=== PATIENT | female | born 1940 | race Caucasian/White ===

== ENCOUNTER 2018-03-09 11:49 | Inpatient (IN) | payer MEDICARE, OTHER ==
[2018-03-09] MEDS ORDERED: NS 0.9% 1000 ML*IV.FLUID IV ONE (14:54)
[2018-03-09] MEDS ORDERED: Azithromycin IV(*) 500 MG in NS 0.9% 250 ML* 250 ML IVPB ONE (14:54)
[2018-03-09] MEDS ORDERED: cefTRIAXone(*) 1 GM in NS 0.9% 50 ML* 50 ML IVPB ONE (14:54)
[2018-03-09] MEDS ORDERED: Albuterol/Ipratropium NEB.SOL* Albuterol 2.5 MG/Ipratropium 0.5 MG 3 ML INH ONE ×2 (15:38→17:06)
[2018-03-09 15:54] LABS: ABS Basophils 0 10^3/ul (0-0.2); ABS Eosinophils 0 10^3/ul (0-0.6); ABS Lymphocytes 0.8 10^3/ul (1.0-4.8); ABS Monocytes 0.5 10^3/ul (0-0.8); ABS Neutrophils 10.3 10^3/ul (1.5-7.7); ABS Nucleated RBC 0 10^3/ul; Eosinophil % 0.1 %; Hematocrit 42 % (35-47); Hemoglobin 13.9 g/dl (12.0-16.0); Lymphocyte % 7.2 %; Mean Corpuscular HGB Conc 33 g/dl (31-36); Mean Corpuscular Hemoglobin 30 pg (27-31); Mean Corpuscular Volume 90 fL (80-97); Mean Platelet Volume 8.6 fL (7.4-10.4); Nucleated Red Blood Cells % 0; Platelet Count 220 10^3/ul (150-450); Red Blood Count 4.66 10^6/ul (4.00-5.40); Red Cell Distribution Width 14 % (10.5-15); White Blood Count 11.6 10^3/ul (3.5-10.8)
--- NOTE | 2018-03-09 15:57 | ED ---
Respiratory - HPI Summary HPI Summary: Patient is a 77 -year-old male who presents emergency Department with complaints of shortness of breath, wheezing, cough and fever. Patient states she developed a cough about 2 weeks ago and has been coughing up a lot of mucus. She states in the last few days she is wheezy, short of breath and developed fever. Symptoms are moderate in severity. Activities make symptoms worse. Activity makes symptoms better. One episode of vomiting. Denies chest pain, abdominal pain, diarrhea, urinary symptoms. Pt. notes she is visiting the area and recently flew from [place] and then drove to [place] from [place]. Symptoms are moderate in severity. - History of Current Complaint Chief Complaint: EDGeneral Stated Complaint: FEVER/VOMITING Time Seen by Provider: 03/09/18 14:38 Hx Obtained From: Patient Pain Intensity: 0 - Allergy/Home Medications Allergies/Adverse Reactions: Allergies Allergy/AdvReac Type Severity Reaction Status Date / Time No Known Allergies Allergy Verified 03/09/18 11:57 PMH/Surg Hx/FS Hx/Imm Hx Previously Healthy: Yes Infectious Disease History: No Infectious Disease History: Denies: Traveled Outside the in Last 30 Days - Family History Known Family History: Positive: Non-Contributory - Social History Occupation: Retired Lives: With Family Alcohol Use: Occasionally Substance Use Type: Reports: Prescribed Substance Use Comment - Amount & Last Used: norco Smoking Status (MU): Never Smoked Tobacco Review of Systems Positive: Fever, Chills Eyes: Negative ENT: Negative Cardiovascular: Negative Negative: Palpitations, Chest Pain Positive: Shortness Of Breath, Cough Positive: Vomiting Genitourinary: Negative Skin: Negative Neurological: Negative All Other Systems Reviewed And Are Negative: Yes Physical Exam Triage Information Reviewed: Yes Vital Signs On Initial Exam: Initial Vitals Temp Pulse Resp BP Pulse Ox 97.7 F 115 20 113/70 91 03/09/18 11:52 03/09/18 11:52 03/09/18 11:52 03/09/18 11:52 03/09/18 11:52 Vital Signs Reviewed: Yes Appearance: Positive: Well-Appearing - Pt. sitting up in bed in NAD. Family member present. Skin: Positive: Warm, Dry Head/Face: Positive: Normal Head/Face Inspection Eyes: Positive: Normal, EOMI Neck: Positive: Supple, Nontender. Negative: Nuchal Rigidity Respiratory/Lung Sounds: Positive: Other - crackles on the left and mild wheezing on the right lower base. Decreased breath sounds throughout Cardiovascular: Positive: Normal, RRR Abdomen Description: Positive: Nontender, Soft Musculoskeletal: Positive: Normal, Strength/ROM Intact Neurological: Positive: Normal, CN Intact II-III Psychiatric: Positive: Affect/Mood Appropriate - Shyla Coma Scale Best Eye Response: 4 - Spontaneous Best Motor Response: 6 - Obeys Commands Best Verbal Response: 5 - Oriented Coma Scale Total: 15 Diagnostics - Vital Signs Vital Signs Temp Pulse Resp BP Pulse Ox 03/09/18 14:41 100.2 F 112 22 127/90 93 03/09/18 14:40 112 92 03/09/18 11:52 97.7 F 115 20 113/70 91 - Laboratory Result Diagrams: 03/09/18 15:37 03/09/18 15:37 Lab Statement: Any lab studies that have been ordered have been reviewed, and results considered in the medical decision making process. Disposition - Course Course Of Treatment: Is Pt. presenting for cough, fever and SOB. Temp 101.2F, HR 112, resp 22, O2 saturation initially 91% on RA which is low. Pt. placed on NC and O2 improved to high 90's. Concern for pneumonia. VS are concerning for sepsis and sepsis protocol ordered. Will give duoneb, rocephin and zithromax. CBC shows WBC of 11.6. CRP elevated. Labs otherwise unremarkable. Chest xray negative for acute findings, per radiology. 1538: Pt. re-examined. She is moving air better and is having more wheezing. Pt. states she is feeling better and would like to be dc at this time. Pt. agreed to do another breathing treatment. 1735: Nurse took pt. off of O2 and brought her to the bedside. Pt. immediately desated to low 70's and had peripheral cyanosis. Pt. put on 5L nonrebreathing and O2 improved. Given recent travels will obtain CTA to evalute for PE. I spoke with hospitalist, Dr. Branham, and she has accepted pt. to her service pending CTA at this time. O2 sats in mid 90's on re-exam. - Differential Dx - Cardiopulmonary Differential Diagnoses - Cardiopulmonary: Acute Coronary, Acute Dyspnea - Diagnoses Provider Diagnoses: Hypoxia Discharge - Sign-Out/Discharge Documenting (check all that apply): Patient Departure - Discharge Plan Condition: Stable Disposition: ADMITTED TO [facility] Referrals: No Primary Care Phys,NOPCP [Primary Care Provider] - - Billing Disposition and Condition Condition: STABLE Disposition: Admitted to [facility]
[2018-03-09 16:17] LABS: Albumin/Globulin Ratio 1.5 (1-3); BUN/Creatinine Ratio 25.4 (8-20); C Reactive Protein 81.37 mg/L (<8.01); EGFR Non-African American 79.6 (>60); Globulin 2.6 g/dL (2-4); Potassium 3.4 mmol/L (3.5-5.0); Total Bilirubin 0.5 mg/dL (0.2-1.0); Total Protein 6.6 g/dL (6.4-8.9)
[2018-03-09 17:48] LABS: Urine Appearance Cloudy; Urine Bacteria Absent (Absent); Urine Bilirubin Negative (Negative); Urine Blood Negative (Negative); Urine Color Yellow; Urine Glucose Negative (Negative); Urine Ketones Trace (Negative); Urine Nitrite Negative (Negative); Urine Protein Negative (Negative); Urine Red Blood Cell Absent (Absent); Urine Urobilinogen Negative (Negative); Urine White Blood Cell 1+(6-10/hpf) (Absent)
[2018-03-09] MEDS ORDERED: Acetaminophen TAB* 325 MG PO ONE (17:48)
[2018-03-09] MEDS ORDERED: Iohexol 350* (CONTRAST) 500 ML MDV IV ONE (18:26)
[2018-03-09] MEDS ORDERED: Piperacillin/Tazobac ADVAN(*) 3.375 GM in NS 0.9% 100 ML* 100 ML IVPB ONE (19:52)
[2018-03-09] MEDS ORDERED: tiZANidine TAB* 2 MG PO PRN (19:57)
[2018-03-09] MEDS ORDERED: Fluticasone NASAL SPRAY 50MCG* 16 gm SPRAY BTL BOTH NARES PRN (19:58)
[2018-03-09] MEDS ORDERED: Ondansetron INJ* 2 MG/ML VIAL IV PRN (19:59)
[2018-03-09] MEDS ORDERED: Acetaminophen TAB* 325 MG PO PRN (19:59)
[2018-03-09] MEDS ORDERED: Zosyn per Pharmacy* NOTE FOLLOW UP SCH (20:00)
[2018-03-09] MEDS ORDERED: NS 0.9% 1000 ML* 1,000 ML IV SCH (20:00)
--- NOTE | 2018-03-09 22:10 | HP ---
HISTORY AND PHYSICAL: DATE OF ADMISSION: 03/09/18 PRIMARY CARE PROVIDER: None locally. CHIEF COMPLAINT: Shortness of breath, fever, and vomiting. HISTORY OF PRESENT ILLNESS: Anthony Uriostegui is a 77-year-old female who just arrived to [place] from [place], [place] 6 days ago. She flew in to visit her grandson. She stated that after her travel, she fe lt somewhat tired and would get occasionally dizzy when standing up, but otherwise she has had no oth er issues apart from her chronic dyspnea with exertion that had been ongoing ever since she had pulmo nary emboli several years ago. She stated that yesterday she ate chili and she started vomiting mult iple times. She developed cough and shortness of breath subsequently, and today in the morning, she had a fever of 103 degrees. When she presented to the hospital, her fever was up to 103.2 degrees. T he patient was noted to have oxygen saturation of 91% on room air. She is going to be admitted with a diagnosis of likely aspiration pneumonia. PAST MEDICAL HISTORY: 1. 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 Since then, the patient has had problems with exertional dyspnea. 2. History of pulmonary nodules that had been stable for several years. 3. 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 4. History of lower back surgery. 5. Hypothyroidism. 6. Hypertension. MEDICATIONS: Include: 1. Flonase nasal spray, 1 spray both nostrils daily p.r.n. 2. Diovan 160/25 one tablet daily. 3. Zanaflex 2 mg every 8 hours p.r.n. 4. Ambien 10 mg at bedtime. 5. Synthroid 75 mcg daily. 6. [place] 10/325 mg up to 2 tablets a day. ALLERGIES: No known drug allergies. FAMILY HISTORY: Positive for mother with breast cancer in 1 breast and another primary breast cancer in the remaining breast 30 years later as well as colon cancer. The patient's mother lived up to be 93. Father with history of heart disease and dementia. SOCIAL HISTORY: The patient denies tobacco, alcohol, or drug use. She lives is [place] and she is here visiting her family. She named her daughter who is here with her, Marcia Rojas, as her surroga te. Marcia's phone number is [phone]. REVIEW OF SYSTEMS: Please see history of present illness. Positive for chronic dyspnea on exertion for several years since her pulmonary embolism. Positive bilateral leg edema which is chronic. The patient denies any abdominal pain. She has had f gideon, nausea, and vomiting for the past 24 hours and the fevers were subsequent to the nausea, vomit ing. She started coughing after vomiting several times. All the remaining 12 systems were reviewed with the patient and were otherwise negative. PHYSICAL EXAMINATION GENERAL: The patient is a very pleasant 77-year-old female who is in no acute distress. Alert, awak e, and oriented x3. VITAL SIGNS: Blood pressure of 127/90, heart rate of 112 and regular, respiratory rate 22, oxygen sa turation 91% on room air, temperature currently of 100.2. HEENT: Head: Atraumatic, normocephalic. Eyes: Pupils are equal, reactive to light and accommodati on. Oropharynx clear. Mucosa dry. NECK: Supple. No JVD. No bruits bilaterally. RESPIRATORY: Scattered crackles bilateral lower and mid lungs. CARDIOVASCULAR: Regular rhythm, tachycardia. No murmur. ABDOMEN: Soft, nontender. Bowel sounds are present in all 4 quadrants. EXTREMITIES: There is +1 nonpitting pedal edema. Pulses are +2 bilaterally. There is no clubbing, c yanosis. NEURO EVALUATION: Speech is clear. Cranial nerves II through XII are grossly intact. Motor strengt h is 5/5 bilaterally. SKIN: On evaluation of skin, no ecchymotic areas or rashes noted. PSYCHIATRIC EVALUATION: Oriented x3 with no evidence of anxiety or depression. LABORATORY DATA/DIAGNOSTIC STUDIES: Performed during the ER stay included: The patient's EKG showed sinus tachycardia with a heart rate of 127 beats per minute, with no signifi cant ST changes. CT angiogram of the chest obtained on 03/09/18, impression: "There are nodular opacities noted in th e right middle lobe and lingular segment of the left upper lobe measuring up to 2 cm, findings may re present infectious or inflammatory process. Recommend followup imaging to document resolution. Ther e are scattered multifocal ground-glass opacities noted in the bilateral lung barnett concerning for i nfectious/inflammatory process. There is adequate opacification of the pulmonary vasculature. There is no evidence of PE." White blood cell count was 11.6, hemoglobin of 13.9, hematocrit of 42, and platelets of 220. Sodium was 137, potassium 3.4, chloride 106, carbon dioxide 26, BUN 18, creatinine 0.7. Liver functi on tests unremarkable. C-reactive protein of 81.3. Troponin of 0.01. Lactic acid of 1.1. Urinalysis: +2 esterase, +1 wbc's, absent bacteria, no nitrites. Influenza testing was negative. ASSESSMENT AND PLAN: 1. The patient is septic due to pneumonia, likely aspiration subsequent to vomiting. The patient is going to be admitted on inpatient basis. She was already treated with intravenous boluses. Blood c ultures were obtained. She received azithromycin and ceftriaxone in the emergency department. From now on, she is going to be treated with Zosyn. 2. In regards to the patient's history of hypertension. The patient's blood pressure had been low n ormal and the patient has history of intermittent dizziness since her arrival to [place]. At this poi nt, the patient's hypertensive medications are going to be held. 3. For the patient's hypothyroidism, the patient's Synthroid is going to be continued. 4. The patient's code status is full and her surrogate is her daughter, Marcia. 5. For DVT prophylaxis, the patient is going to be placed on heparin subcutaneously. TIME SPENT: Approximately 65 minutes were spent on the admission of this patient, more than half of that time was spent [id number] with the patient during the interview and physical exam. [id number]/[facility] #: [id number]
[2018-03-10] MEDS: KCL 20 MEQ/100 ML IVPREMIX* 20 MEQ/100 ML BAG IV SCH ×2 (00:03→02:28)
[2018-03-10] MEDS: Heparin VIAL(*) 5000 UNITS/ML VIAL (FIVE THOUSAND) SUBCUT SCH ×4 (00:05→19:59)
[2018-03-10] MEDS: Hydrocodone/Acetamin 10/325 1 TAB PO SCH ×4 (00:06→19:57)
[2018-03-10] MEDS: Zolpidem TAB* 10 MG PO SCH ×2 (00:06→19:59)
[2018-03-10] MEDS ORDERED: ZOSYN 3.375 GM Q8H per EXTENDED INFUSION IVPB SCH ×2 (01:00)
[2018-03-10] MEDS: ZOSYN 3.375 GM Q8H per EXTENDED INFUSION IVPB SCH ×6 (04:43→19:57)
[2018-03-10] MEDS: Levothyroxine TAB* 75 MCG TAB PO SCH (05:51)
[2018-03-10 07:27] LABS: ABS Basophils 0 10^3/ul (0-0.2); ABS Eosinophils 0.3 10^3/ul (0-0.6); ABS Lymphocytes 1.3 10^3/ul (1.0-4.8); ABS Monocytes 0.5 10^3/ul (0-0.8); ABS Neutrophils 4.9 10^3/ul (1.5-7.7); ABS Nucleated RBC 0 10^3/ul; Eosinophil % 3.8 %; Hematocrit 37 % (35-47); Mean Corpuscular HGB Conc 33 g/dl (31-36); Mean Corpuscular Hemoglobin 30 pg (27-31); Mean Corpuscular Volume 92 fL (80-97); Mean Platelet Volume 8.1 fL (7.4-10.4); Nucleated Red Blood Cells % 0; Platelet Count 175 10^3/ul (150-450); Red Cell Distribution Width 15 % (10.5-15)
[2018-03-10 07:40] LABS: BUN/Creatinine Ratio 17.6 (8-20); Calcium 8.7 mg/dL (8.6-10.3); EGFR Non-African American 83.7 (>60); Potassium 4.2 mmol/L (3.5-5.0)
[2018-03-10] MEDS ORDERED: Valsartan/HCTZ 160/25(NF) TAB PO SCH (09:00)
[2018-03-10] MEDS ORDERED: Magnesium Hydroxide LIQ* 30 ML UDC PO PRN (09:09)
--- NOTE | 2018-03-10 13:32 | PN ---
Subjective Date of Service: 03/10/18 Interval History: Patient seen and examined at bedside. Denies fever, chills, shortness of breath , chest discomfort, N/V/D. She states that she feels much better today than when she came in yesterday. She states that she feels like the mucous in her throat is starting to loosen up and clear, and has an occasional productive cough with brown mucous. She has been able to be weaned off O2 this AM. She has a poor appetite, but was able to pass a bedside swallow study and has tolerated breakfast. Family History: Unchanged from Admission Social History: Unchanged from Admission Past Medical History: Unchanged from Admission Objective Active Medications: Acetaminophen (Tylenol Tab*) 650 mg PO Q4H PRN Reason: FEVER/PAIN Hydrocodone Bitart/Acetaminophen ([place] 10/325 (Nf)) 1 tab PO TID KIRAN Hydrocodone Bitart/Acetaminophen ([place] 5-325 Tab*) 2 tab PO Q6H PRN Reason: PAIN Fluticasone Propionate (Flonase Nasal [place] 50mcg*) 1 spray BOTH NARES DAILY PRN Reason: Allergy Symptoms Heparin Sodium (Porcine) (Heparin Vial(*)) 5,000 units SUBCUT Q8HR KIRAN Piperacillin Sod/Tazobactam (Sod 3.375 gm/ Sodium Chloride) 100 mls @ 25 mls/ hr IVPB 0400,1200,2000 KIRAN Levothyroxine Sodium (Synthroid Tab*) 75 mcg PO DAILY@0600 KIRAN Magnesium Hydroxide (Milk Of Magnesia Liq*) 30 ml PO Q6H PRN Reason: CONSTIPATION Ondansetron HCl (Zofran Inj*) 4 mg IV Q4H PRN Reason: NAUSEA/VOMITING Pharmacy Consult (Zosyn Per Pharmacy*) 1 note FOLLOW UP .ZOSYN PER PHARMACY KIRAN Tizanidine HCl (Zanaflex Tab*) 2 mg PO Q8HR PRN Reason: SPASMS - MUSCLE Zolpidem Tartrate (Ambien Tab*) 10 mg PO BEDTIME [facility] Vital Signs - 8 hr 03/10/18 03/10/18 03/10/18 07:47 08:00 09:05 Temperature 98.0 F Pulse Rate 91 Respiratory 16 16 16 Rate Blood Pressure 114/72 (mmHg) O2 Sat by Pulse 98 98 Oximetry 03/10/18 03/10/18 11:00 11:28 Temperature Pulse Rate 93 Respiratory 16 17 Rate Blood Pressure 125/63 (mmHg) O2 Sat by Pulse 98 Oximetry Oxygen Devices in Use Now: None Appearance: NAD, sitting up in bed. Ears/Nose/Mouth/Throat: Mucous Membranes Moist Respiratory: Symmetrical Chest Expansion and Respiratory Effort, - - Crackles in bases Cardiovascular: NL Sounds; No Murmurs; No JVD, RRR Abdominal: NL Sounds; No Tenderness; No Distention Extremities: No Edema Skin: No Rash or Ulcers Neurological: Alert and Oriented x 3, NL Muscle Strength and Tone Lines/Tubes/Other Access: Clean, Dry and Intact Peripheral IV - site benign Nutrition: Taking PO's Result Diagrams: 03/10/18 07:08 03/10/18 07:08 Microbiology and Other Data: Microbiology 03/09/18 17:27 Streptococcus pneumoniae Ag Screen - Final Urine Negative S. pneumo Antigen 03/09/18 17:27 Legionella Urinary Antigen - Final Urine Negative Legionella Antigen 03/09/18 17:28 Influenza Types A,B Antigen - Final Nasopharyngeal Specimen received for Influenza A/B Molecular testing Assess/Plan/Problems-Billing Assessment: Ms. Uriostegui is a 77 yo female with PMH significant for hx PE, pulmonary nodules, hypothyroidism and HTN who presented to the emergency room with complaints of - Patient Problems (1) Aspiration pneumonia Code(s): J69.0 - PNEUMONITIS DUE TO INHALATION OF FOOD AND VOMIT SNOMED Code(s ): 815489660 Comment: - Afebrile, last fever 102.8 at 1900 last night, leukocytosis resoved - With associated sepsis on admssion - Has an occasional moist prodiuctive cough - CRP ~ 81 - Passed a bedside swallow eval - Continue Zosyn (2) HTN (hypertension) Code(s): I10 - ESSENTIAL (PRIMARY) HYPERTENSION SNOMED Code(s): 71386866 Comment: - Normotensive, SBP 100-120's - Hold Diovan (3) Hypothyroid Code(s): E03.9 - HYPOTHYROIDISM, UNSPECIFIED SNOMED Code(s): 56148175 Comment: - Continue levothyroxine (4) DVT prophylaxis Code(s): MHO2314 - SNOMED Code(s): 445287589 Comment: - SQ heparin (5) Full code status Code(s): Z78.9 - OTHER SPECIFIED HEALTH STATUS SNOMED Code(s): 439028487 Status and Disposition: Inpatient. Discharge to home later this evening if she continues to be afebrile and able to ambulate without shortness of breath.
[2018-03-11] MEDS: ZOSYN 3.375 GM Q8H per EXTENDED INFUSION IVPB SCH ×2 (03:25)
[2018-03-11] MEDS: Heparin VIAL(*) 5000 UNITS/ML VIAL (FIVE THOUSAND) SUBCUT SCH (05:55)
[2018-03-11] MEDS: Levothyroxine TAB* 75 MCG TAB PO SCH (05:56)
[2018-03-11] MEDS: HYDROcodone/ACETAMIN 5-325 MG* 1 TAB PO PRN ×2 (05:56→12:17)
--- NOTE | 2018-03-11 09:30 | PN ---
Subjective Date of Service: 03/11/18 Interval History: Patient seen and examined at bedside. Denies fever, chills, shortness of breath , chest discomfort, N/V/D. States that she is feeling much better today and is anxious for discharge to home. She does continue to have shortness of breath with exertion, but states that this is her baseline. Patient had a fall last night, initially she denied injuries or pain after the fall. This AM she is reporting increased pain in her left wrist, she has a know "bone chip" in that wrist. Family History: Unchanged from Admission Social History: Unchanged from Admission Past Medical History: Unchanged from Admission Objective Active Medications: Acetaminophen (Tylenol Tab*) 650 mg PO Q4H PRN Reason: FEVER/PAIN Hydrocodone Bitart/Acetaminophen ([place] 10/325 (Nf)) 1 tab PO TID KIRAN Hydrocodone Bitart/Acetaminophen ([place] 5-325 Tab*) 2 tab PO Q6H PRN Reason: PAIN Fluticasone Propionate (Flonase Nasal [place] 50mcg*) 1 spray BOTH NARES DAILY PRN Reason: Allergy Symptoms Heparin Sodium (Porcine) (Heparin Vial(*)) 5,000 units SUBCUT Q8HR KIRAN Piperacillin Sod/Tazobactam (Sod 3.375 gm/ Sodium Chloride) 100 mls @ 25 mls/ hr IVPB 0400,1200,2000 KIRAN Levothyroxine Sodium (Synthroid Tab*) 75 mcg PO DAILY@0600 KIRAN Magnesium Hydroxide (Milk Of Magnesia Liq*) 30 ml PO Q6H PRN Reason: CONSTIPATION Ondansetron HCl (Zofran Inj*) 4 mg IV Q4H PRN Reason: NAUSEA/VOMITING Pharmacy Consult (Zosyn Per Pharmacy*) 1 note FOLLOW UP .ZOSYN PER PHARMACY KIRAN Tizanidine HCl (Zanaflex Tab*) 2 mg PO Q8HR PRN Reason: SPASMS - MUSCLE Zolpidem Tartrate (Ambien Tab*) 10 mg PO BEDTIME [facility] Vital Signs - 8 hr 03/11/18 03/11/18 03/11/18 05:56 07:32 07:33 Temperature Pulse Rate Respiratory 18 Rate Blood Pressure (mmHg) O2 Sat by Pulse 93 95 Oximetry 03/11/18 03/11/18 07:36 08:00 Temperature 98.3 F Pulse Rate 107 Respiratory 14 Rate Blood Pressure 151/87 (mmHg) O2 Sat by Pulse 94 96 Oximetry Oxygen Devices in Use Now: None Appearance: NAD, sitting up on the side of the bed Ears/Nose/Mouth/Throat: Mucous Membranes Moist Respiratory: Symmetrical Chest Expansion and Respiratory Effort, Clear to Auscultation - , diminished Cardiovascular: NL Sounds; No Murmurs; No JVD, RRR Abdominal: NL Sounds; No Tenderness; No Distention Extremities: - - Left wrist with pain on palpation to the distal radius, there is also noted to be what feels like movement of the radius. There is also mild swelling and a deformity noted. Skin: No Rash or Ulcers Neurological: Alert and Oriented x 3, NL Muscle Strength and Tone Lines/Tubes/Other Access: Clean, Dry and Intact Peripheral IV - site benign Nutrition: Taking PO's Result Diagrams: 03/10/18 07:08 03/10/18 07:08 Microbiology and Other Data: Microbiology 03/09/18 17:27 Streptococcus pneumoniae Ag Screen - Final Urine Negative S. pneumo Antigen 03/09/18 17:27 Legionella Urinary Antigen - Final Urine Negative Legionella Antigen 03/09/18 17:28 Influenza Types A,B Antigen - Final Nasopharyngeal Specimen received for Influenza A/B Molecular testing Assess/Plan/Problems-Billing Assessment: Ms. Uriostegui is a 77 yo female with PMH significant for hx PE, pulmonary nodules, hypothyroidism and HTN who presented to the emergency room with complaints of - Patient Problems (1) Aspiration pneumonia Code(s): J69.0 - PNEUMONITIS DUE TO INHALATION OF FOOD AND VOMIT SNOMED Code(s ): 890783995 Comment: - Afebrile, last fever 102.8 at 1900 on 03/09, leukocytosis resoved - With associated sepsis on admssion, now resolved - Has an occasional moist productive cough - CRP ~ 81 - Passed a bedside swallow eval - Discharge to home on Augmentin (2) Left wrist pain Code(s): M25.532 - PAIN IN LEFT WRIST SNOMED Code(s): 25532569 Comment: - Increased pain in left wrist after a fall overnight - There is pain with palpation over the distal radius and a wrist deformity - Will check a left wrist xray to eval for possible fracture (3) HTN (hypertension) Code(s): I10 - ESSENTIAL (PRIMARY) HYPERTENSION SNOMED Code(s): 49325293 Comment: - Normotensive, SBP 120-150's - Resume Diovan (4) Hypothyroid Code(s): E03.9 - HYPOTHYROIDISM, UNSPECIFIED SNOMED Code(s): 06578519 Comment: - Continue levothyroxine (5) DVT prophylaxis Code(s): OLR1342 - SNOMED Code(s): 148438077 Comment: - SQ heparin (6) Full code status Code(s): Z78.9 - OTHER SPECIFIED HEALTH STATUS SNOMED Code(s): 450580623 Status and Disposition: Inpatient. Stable for discharge to home today after left wrist xrays.
[2018-03-11] MEDS: Hydrocodone/Acetamin 10/325 1 TAB PO SCH (10:02)
[2018-03-11] MEDS ORDERED: Lidocaine 1% INJ* 10 MG/ML 30 ML SDV INJ ONE (11:07)
[2018-03-11 11:17] VITALS: BP 144/82
--- NOTE | 2018-03-11 13:55 | CONSULT ---
Consult Consult: Orthopedic Surgery Consultation Date: 03/11/18 Requesting Service: Medicine Chief Complaint: Left wrist pain. History: 77F admitted for pneumonia who sustained a slip and fall last night in the hospital with left wrist pain and deformity. It wasn't improved this morning so xrays were obtained showing a left distal radius fracture. She does report that she has had pain in the left wrist before, but denies any fractures. The pain is located at the left wrist and is constant moderate, sharp. Pain worse with ankle ROM and lessened when rested. Review of Systems: Negative for recent visual changes, difficulty swallowing, abdominal pain, hematuria, easy bruising, diffuse weakness or lack of coordination, and diffuse rash. Positive for shortness of breath, fever, vomiting. PMH: Pulmonary embolus after hip surgery, pulmonary nodules, hypothyroidism, hypertension, pneumonia PSH:, bilateral hip replacements, left knee replacement, left shoulder replacement Medications:, Flonase, Diovan, Zanaflex, Ambien, Synthroid, Adona Allergies:, no known drug allergies SH: no alcohol, tobacco, or drug use FH:, cancer, heart disease, dementia Physical Examination: Constitutional: Temp Pulse Resp BP Pulse Ox 97.9 F 99 16 144/82 96 03/11/18 11:16 03/11/18 11:16 03/11/18 12:17 03/11/18 11:16 03/11/18 11:16 General appearance is healthy and non-septic in no acute distress. Cardiovascular: Pulse examination demonstrates positive radial pulses with brisk capillary refill. There are no varicosities. Abdomen: Soft and nontender Lymphatic: No lymphadenopathy appreciated. Skin: Bilateral upper and lower extremity examination demonstrates no ulcerative lesions. Psychiatric / Neurological: Appropriate affect. Alert and oriented to person, place and time. There is no significant abnormality in coordination appreciated. Normoreflexive deep tendon reflex of the affected extremity. Musculoskeletal: Bilateral lower extremities and contralateral upper extremity show full range of motion with no evidence of instability and no tenderness with palpation and 5 /5 strength. There is no gross deformity. There is a deformity at the left wrist with some localized swelling Skin intact 5/5 motor strength OP, EPL, 1st LENORE with intact sensation to light touch R/M/U There is no global swelling, edema, or varicosities. TTP at distal radius Palpable radial pulse. Painless shoulder and elbow ROM Imaging: X-rays were obtained, and independently interpreted and show a displaced left distal radius fracture Impression and Plan: Displaced, closed left distal radius fracture. Signed informed consent was obtained for a left wrist hematoma block, wrist closed reduction and placement of a short arm plaster splint. The procedure was well tolerated and post-reduction xrays showed satisfactory alignment. She will rest and elevate the LUE, remain NWB. f/u 1 week for repeat xrays in splint. Hugh Munoz MD
--- NOTE | 2018-03-11 22:22 | DS ---
CC: Dr. Tabor in [place], [place], fax #[phone]; Dr. Gemma Bradford, [place], [place], fax #[phone]; Dr. Hugh Munoz * DISCHARGE SUMMARY: DATE OF ADMISSION: 03/09/18 DATE OF SURGERY: 03/11/18 ATTENDING PHYSICIAN: Dr. Arden Costa * (dictated by Hosea Montiel NP). PRIMARY CARE PROVIDER: Dr. Gemma Bradford. PRIMARY DIAGNOSES: 1. Aspiration pneumonia. 2. Sepsis, resolved. 3. Displaced left distal radius fracture, status post closed reduction. SECONDARY DIAGNOSES: 1. Hypertension. 2. Hypothyroidism. CONSULTATIONS WHILE IN THE HOSPITAL: Dr. Hugh Munoz with Orthopedics. STUDIES WHILE IN THE HOSPITAL: 1. Chest x-ray on 03/09/18. Radiologist's impression: No active cardiopulmonary disease. 2. Chest thoracic CTA on 03/09/18. Radiologist's impression: There are nodular opacities noted in the right middle lobe and lingular segment of the left upper lobe measuring up to 2 cm, findings may represent infection or inflammatory process, recommend followup imaging to document resolution. There are scattered multifocal ground-glass opacities noted in the bilateral lung field concerning for an infectious/inflammatory process. There is adequate opacification of the pulmonary vasculature. There is no evidence of pulmonary embolus. 3. Left wrist x-ray on 03/11/18. Radiologist's impression: Comminuted fracture of the radius metadiaphysis with overriding of the fracture fragments and foreshadowing of the radius. 4. Left wrist x-ray on 03/11/18. Partial reduction of distal radius fracture. DISCHARGE MEDICATIONS: New home medications: 1. Acetaminophen 650 mg oral every 4 hours as needed for fever or pain. 2. Augmentin 875 mg oral twice daily for 6 more days. 3. Ibuprofen 600 mg oral every 6 hours as needed for fever. Continued home medications: 1. Tizanidine 2 mg oral every 8 hours as needed for muscle spasms. 2. Diovan 160/25, 1 tablet oral daily. 3. Ambien 10 mg oral daily at bedtime. 4. Levothyroxine 75 mcg oral daily. 5. Flonase nasal spray, 1 spray to both nares daily. Changed home medications: [place] 10/325, 1 tablet oral every 6 hours as needed for pain. HISTORY OF PRESENT ILLNESS/HOSPITAL COURSE: Ms. Uriostegui is a 77-year-old female with past medical history significant for pulmonary emboli after hip surgery with history of exertional dyspnea, known pulmonary nodules, hypothyroidism and hypertension, who is here visiting in [place] arriving approximately 6 days ago. After traveling, she felt somewhat tired and occasionally dizzy when standing up. She reported chronic dyspnea with exertion that had been ongoing since pulmonary emboli several years ago. While at her grandson's, she had some chili , felt as though it was stuck and vomited multiple times. After that, she developed cough, shortness of breath, was noted to have a fever of 103 degrees at home. Due to her fever at home, she presented to the hospital for further evaluation. While in the emergency room, she was noted to have a fever of up to 103.2, oxygen saturation around 91% on room air. She had a chest x-ray showing no acute findings. Influenza testing was negative. White blood cell count was 11.6. CRP 81.3. She had a CTA of her chest showing nodular opacities of the right middle lobe and lingular segment of the left upper lobe representing possible infectious or inflammatory process. No PE was noted. The hospitalists were asked to evaluate the patient for admission. During the hospitalization, she was treated with Zosyn for suspected likely aspiration pneumonia. Her leukocytosis resolved. She was afebrile for over 24 hours. Her blood pressures were mostly normotensive. She passed the bedside nursing swallow eval, was tolerating a regular diet. Overnight on the night of 03/10/18 into 03/11/18, she got up, lost her balance and "fell on her bottom." At the time of the fall, the patient denied any injuries. This morning, the patient reported increased left wrist pain after falling last night. Upon examination, the patient had noticeable left wrist deformity and swelling. X- rays were obtained showing a distal radius fracture. She was seen in consultation by Dr. Hugh Munoz. She had a closed reduction at bedside with repeat x-rays showing partial reduction. It was felt that she could be discharged with a splint to follow up with Orthopedics when she returns home to [place]. Ms. Uriostegui is stable for discharge home today. Vital signs are as follows: Temperature 97.9, heart rate 99, respiratory rate 20, O2 sat 96% on room air, blood pressure 144/82. DISCHARGE PLAN: Ms. Uriostegui will be discharged to home. Activity as tolerated. She should be on a heart-healthy diet. In regards to her aspiration pneumonia, she will continue on Augmentin 875 mg oral twice daily to complete a 7-day course of antibiotics. In regards to her left distal radius fracture, her arm has been placed in a splint. She has been asked to keep the splint clean, dry, and intact. She has been provided with a sling. She has been encouraged to ice her arm and keep it elevated. She has been encouraged to do range of motion with her fingers throughout the day. She has been asked to call her orthopedic , Dr. Tabor when she returns home for a followup in 1 week. She has also been prescribed [place] every 6 hours as needed for pain. Her I-STOP was checked, reference #[id number]. We are unable to check [place] records, but she has no narcotics prescribed here in [place]. She has also been asked to call her the primary that she is establishing with Dr. Gemma Bradford when she returns home for a followup appointment also. She has been continued on her other usual home medications. If she continues to have issues with swallowing, I recommend to having a formal video fluoroscopy swallow eval, but she has had no further issues while here in the hospital. She has been asked to return to the closest emergency room during her travels for any increased shortness of breath, chest pain, or signs of poor circulation in her left wrist post reduction. This is a summarized report of a complex medical history and hospital stay. For further details, please see the entire medical record. TIME SPENT: Time for this discharge was approximately 50 minutes, greater than half of that was spent with the patient and family discussing discharge plans and instructions. CONDITION ON DISCHARGE: Stable. HOSEA DE LA CRUZ NP [id number]/[facility] #: [id number]
== END 2018-03-11 13:45 | disposition home or self-care (01) | DRG 871 ==
LOC: ED 11:49 → MED 19:50
PROVIDERS: ADMIT Internal Medicine; ATTEND Student in an Organized Health Care Education/Training Program
PROC: 2W3DX1Z Immobilization of Left Lower Arm using Splint (ICD-10-PCS; principal; 2018-03-10)
PROC: 0PSJXZZ Reposition Left Radius, External Approach (ICD-10-PCS; 2018-03-10)
DX: A41.9 Sepsis, unspecified organism (principal); J69.0 Pneumonitis due to inhalation of food and vomit; S52.502A Unspecified fracture of the lower end of left radius, initial encounter for closed fracture; I10 Essential (primary) hypertension; E03.9 Hypothyroidism, unspecified; R40.2362 Coma scale, best motor response, obeys commands, at arrival to emergency department; R40.2252 Coma scale, best verbal response, oriented, at arrival to emergency department; R09.02 Hypoxemia; R60.0 Localized edema; R40.2142 Coma scale, eyes open, spontaneous, at arrival to emergency department; R91.8 Other nonspecific abnormal finding of lung field; Z96.653 Presence of artificial knee joint, bilateral; Z96.643 Presence of artificial hip joint, bilateral; Z80.3 Family history of malignant neoplasm of breast; Z80.0 Family history of malignant neoplasm of digestive organs; Z81.8 Family history of other mental and behavioral disorders; Z86.711 Personal history of pulmonary embolism; Z82.49 Family history of ischemic heart disease and other diseases of the circulatory system; Z72.89 Other problems related to lifestyle; W01.0XXA Fall on same level from slipping, tripping and stumbling without subsequent striking against object, initial encounter; Y92.239 Unspecified place in hospital as the place of occurrence of the external cause
CPT/HCPCS: 36415; 71046; 71275; 80048; 80053; 81003; 81015; 83605; 84484; 85025; 86140; 87040; 87086; 87899; 93005; 99285; A9270-GY; J0456; J0696; J1644; J2543; J3480; Q9967